=== PATIENT | male | born 1960 | race Caucasian/White ===

== ENCOUNTER 2017-10-08 10:09 | Inpatient (IN) | payer MEDICAID, OTHER ==
[~2017-10-08] VITALS: Ht 185.4 cm; Wt 62.8 kg
[~2017-10-08 10:09] MED LIST: OXYC-307 PO; SULF1TAB24 PO
[2017-10-08] MEDS ORDERED: SODIUM CHLORIDE FLUSH 10ML SYR IVF ONE (11:30)
[2017-10-08 11:59] LABS: MD YES; MEAN CORPUSCULAR HEMOGLOBIN 32.4 pg (27.5-34.5); MEAN CORPUSCULAR HGB CONC 34.6 g/dL (33.2-36.2); MEAN CORPUSCULAR VOLUME 93.7 fL (81-97); MEAN PLATELET VOLUME 9.8 fL (7.4-10.4); PLATELET COUNT 360 x10^3/uL (130-400); RED BLOOD COUNT 4.32 x10^6/uL (4.38-5.82); RED CELL DISTRIBUTION WIDTH 16.6 % (9.4-14.8)
[2017-10-08 12:03] LABS: ALANINE AMINOTRANSFERASE 104 U/L (12-78); ALBUMIN 2.3 g/dL (3.4-5.0); ANION GAP 10 mmol/L (5-15); CALCIUM 8.3 mg/dL (8.5-10.1); CHLORIDE 105 mmol/L (98-107)
[2017-10-08 12:08] LABS: ALKALINE PHOSPHATASE 498 U/L (45-117); BILIRUBIN,INDIRECT 3.1 mg/dL (0.0-2.0); TOTAL PROTEIN 5.9 g/dL (6.4-8.2)
[2017-10-08 12:10] LABS: ACETAMINOPHEN < 2 mcg/mL (10-30); BILIRUBIN, DIRECT 15.1 mg/dL (0.1-0.2); SALICYLATE LEVEL < 1.7 mg/dL (2.8-20.0)
[2017-10-08 12:18] LABS: BILIRUBIN,TOTAL 18.2 mg/dL (0.2-1.0)
[2017-10-08] MEDS ORDERED: PANTOPRAZOLE 40 MG IV IVPush ONE (12:30)
[2017-10-08 12:36] LABS: LYMPH#(MANUAL) 1.38 x10^3/uL (1-3.4); LYMPHS% (MANUAL) 10 % (22-44); SEG#(MANUAL) 12.42 x10^3/uL (1.8-6.8); SEGS% (MANUAL) 90 % (42-75)
[2017-10-08 12:37] LABS: ANISOCYTOSIS 1+; HYPOCHROMIA 1+; TARGET CELLS 2+
[2017-10-08 12:38] LABS: <PLATELET ESTIMATE> ADEQUATE; LARGE PLATELETS 1+
[2017-10-08] MEDS ORDERED: PANTOPRAZOLE 40 MG IV ONE (12:47)
[2017-10-08 12:58] LABS: MICROSCOPIC INDICATED
[2017-10-08 13:02] LABS: INTERNATIONAL NORMALIZED RATIO 1.17 (0.93-1.1); PROTHROMBIN TIME 12.1 Seconds (9.6-11.5)
[2017-10-08 13:07] LABS: CULTURE INDICATED? YES
[2017-10-08] MEDS ORDERED: OMNIPAQUE 350 MG/ML, 100ML BOTTLE ONE (13:49)
[2017-10-08] MEDS ORDERED: SODIUM CHLORIDE FLUSH 10ML SYR IVF PRN (14:30)
[2017-10-08] MEDS ORDERED: ENALAPRILAT 1.25 MG/ML, 2ML IV PRN (15:30)
[2017-10-08] MEDS ORDERED: DOCUSATE 100 MG CAPSULE PO PRN (15:30)
[2017-10-08] MEDS ORDERED: MORPHINE SULFATE 4 MG/ML, 1ML IVPush PRN (15:30)
[2017-10-08] MEDS ORDERED: ONDANSETRON ODT 4 MG PO PRN (15:30)
[2017-10-08] MEDS ORDERED: ONDANSETRON 2MG/ML, 2ML IVPush PRN (15:30)
[2017-10-08] MEDS ORDERED: LIDOCAINE-MPF 2% ,5ML ONE (15:41)
[2017-10-08] MEDS ORDERED: FENTANYL PF 100 MCG/2ML ONE (15:42)
[2017-10-08] MEDS ORDERED: MIDAZOLAM 1 MG/ML, 5ML ONE (15:43)
[2017-10-08] MEDS ORDERED: SODIUM CHLORIDE 0.9% 1,000 ML IV SCH (16:00)
[2017-10-08 16:50] VITALS: BP 116/65
[2017-10-08] MEDS ORDERED: POTASSIUM CHLORIDE 20 MEQ TAB.ER.PRT PO ONE (17:00)
[2017-10-08] MEDS: OXYcodone IR 5MG TABLET PO PRN ×2 (19:37→21:04)
[2017-10-08] MEDS: CEFTRIAXONE PMX 1GM/50ML 50 ML IV SCH (19:38)
[2017-10-08] MEDS: NS + 20MEQ KCL 1,000 ML IV SCH (19:38)
[2017-10-08 19:47] VITALS: BP 122/80
[2017-10-09 00:41] VITALS: BP 130/74
[2017-10-09] MEDS: OXYcodone IR 5MG TABLET PO PRN ×5 (00:46→20:28)
[2017-10-09] MEDS: NS + 20MEQ KCL 1,000 ML IV SCH ×3 (03:36→21:48)
[2017-10-09 04:36] LABS: MEAN CORPUSCULAR VOLUME 94.2 fL (81-97); MEAN PLATELET VOLUME 9.6 fL (7.4-10.4); PLATELET COUNT 312 x10^3/uL (130-400); RED BLOOD COUNT 4.22 x10^6/uL (4.38-5.82); RED CELL DISTRIBUTION WIDTH 16.7 % (9.4-14.8)
[2017-10-09 04:44] LABS: ALBUMIN 1.9 g/dL (3.4-5.0); ANION GAP 8 mmol/L (5-15); CHLORIDE 106 mmol/L (98-107)
[2017-10-09 04:48] LABS: ALANINE AMINOTRANSFERASE 91 U/L (12-78); ALKALINE PHOSPHATASE 441 U/L (45-117); CREATININE 0.93 mg/dL (0.7-1.3); TOTAL PROTEIN 5.1 g/dL (6.4-8.2)
[2017-10-09 04:55] LABS: BILIRUBIN,TOTAL 16.8 mg/dL (0.2-1.0)
[2017-10-09 05:47] LABS: MD YES
[2017-10-09 05:49] LABS: ANISOCYTOSIS 1+; BAND#(MANUAL) 0.14 x10^3/uL; BANDS%(MANUAL) 1 % (0-7); LYMPH#(MANUAL) 1.37 x10^3/uL (1-3.4); LYMPHS% (MANUAL) 10 % (22-44); MONOS#(MANUAL) 0.82 x10^3/uL (0.3-2.7); MONOS% (MANUAL) 6 % (2-9); SEG#(MANUAL) 11.37 x10^3/uL (1.8-6.8); SEGS% (MANUAL) 83 % (42-75)
[2017-10-09 05:50] LABS: <PLATELET ESTIMATE> ADEQUATE; <PLT MORPHOLOGY> NORMAL PLT MORPH; TARGET CELLS 1+
[2017-10-09 06:11] VITALS: BP 128/88
[2017-10-09 07:05] VITALS: BP 110/71
[2017-10-09] MEDS ORDERED: PANTOPRAZOLE 40 MG IV IVPush SCH (07:30)
[2017-10-09 13:19] VITALS: BP 116/73
[2017-10-09] MEDS: METRONIDAZOLE PMX 500MG/100ML 100 ML IV SCH ×2 (16:28→21:48)
[2017-10-09] MEDS: HEPARIN 5,000 UNITS/ML, 1ML SQ SCH (18:51)
[2017-10-09] MEDS: CEFTRIAXONE PMX 1GM/50ML 50 ML IV SCH (20:28)
[2017-10-09 20:33] VITALS: BP 126/76
[2017-10-09] MEDS ORDERED: BENA40TA2 PO (21:47)
[2017-10-09] MEDS ORDERED: AMLO5TAB2 PO (21:47)
[2017-10-10] MEDS: OXYcodone IR 5MG TABLET PO PRN ×4 (00:06→21:05)
[2017-10-10] MEDS: HEPARIN 5,000 UNITS/ML, 1ML SQ SCH ×3 (02:47→18:45)
[2017-10-10 02:48] VITALS: BP 127/77
[2017-10-10] MEDS: METRONIDAZOLE PMX 500MG/100ML 100 ML IV SCH ×4 (04:08→22:15)
[2017-10-10 04:40] LABS: MEAN CORPUSCULAR VOLUME 94.1 fL (81-97); PLATELET COUNT 299 x10^3/uL (130-400); RED BLOOD COUNT 4.16 x10^6/uL (4.38-5.82); RED CELL DISTRIBUTION WIDTH 16.7 % (9.4-14.8)
[2017-10-10 04:43] LABS: ALBUMIN 1.9 g/dL (3.4-5.0); ANION GAP 7 mmol/L (5-15); CALCIUM 7.6 mg/dL (8.5-10.1); CHLORIDE 108 mmol/L (98-107)
[2017-10-10 04:48] LABS: ALANINE AMINOTRANSFERASE 87 U/L (12-78); ALKALINE PHOSPHATASE 455 U/L (45-117); CREATININE 0.72 mg/dL (0.7-1.3); TOTAL PROTEIN 5.1 g/dL (6.4-8.2)
[2017-10-10 04:50] LABS: BILIRUBIN,TOTAL 17.3 mg/dL (0.2-1.0)
[2017-10-10 05:44] LABS: MD YES
[2017-10-10 05:46] LABS: BASOS#(MANUAL) 0.14 x10^3/uL (0-0.1); BASOS% (MANUAL) 1 % (0-1); EOS#(MANUAL) 0.42 x10^3/uL (0.0-0.4); EOS% (MANUAL) 3 % (1-7); LYMPH#(MANUAL) 1.69 x10^3/uL (1-3.4); LYMPHS% (MANUAL) 12 % (22-44); MONOS#(MANUAL) 0.99 x10^3/uL (0.3-2.7); MONOS% (MANUAL) 7 % (2-9); SEG#(MANUAL) 10.86 x10^3/uL (1.8-6.8); SEGS% (MANUAL) 77 % (42-75)
[2017-10-10 05:47] LABS: <PLATELET ESTIMATE> ADEQUATE; <PLT MORPHOLOGY> NORMAL PLT MORPH; ANISOCYTOSIS 1+
[2017-10-10 07:35] VITALS: BP 124/77
[2017-10-10 14:05] VITALS: BP 118/75
[2017-10-10] MEDS ORDERED: NS + 20MEQ KCL 1,000 ML IV SCH (17:00)
[2017-10-10] MEDS: NS + 20MEQ KCL 1,000 ML IV SCH (17:49)
[2017-10-10 19:14] VITALS: BP 118/71
[2017-10-10] MEDS: CEFTRIAXONE PMX 1GM/50ML 50 ML IV SCH (20:56)
[2017-10-11 01:19] VITALS: BP 124/76
[2017-10-11] MEDS: HEPARIN 5,000 UNITS/ML, 1ML SQ SCH ×3 (03:07→18:51)
[2017-10-11] MEDS: OXYcodone IR 5MG TABLET PO PRN ×3 (03:07→18:50)
[2017-10-11] MEDS: METRONIDAZOLE PMX 500MG/100ML 100 ML IV SCH ×4 (03:07→22:20)
[2017-10-11 04:56] LABS: ALBUMIN 1.8 g/dL (3.4-5.0); ANION GAP 8 mmol/L (5-15); CALCIUM 7.8 mg/dL (8.5-10.1); CHLORIDE 106 mmol/L (98-107)
[2017-10-11 05:01] LABS: ALANINE AMINOTRANSFERASE 83 U/L (12-78); ALKALINE PHOSPHATASE 468 U/L (45-117); CREATININE 0.75 mg/dL (0.7-1.3); TOTAL PROTEIN 4.9 g/dL (6.4-8.2)
[2017-10-11 05:02] LABS: BILIRUBIN,TOTAL 19.1 mg/dL (0.2-1.0)
[2017-10-11 05:11] LABS: MEAN CORPUSCULAR HEMOGLOBIN 32.7 pg (27.5-34.5); MEAN CORPUSCULAR VOLUME 93.4 fL (81-97); PLATELET COUNT 304 x10^3/uL (130-400); RED BLOOD COUNT 3.95 x10^6/uL (4.38-5.82); RED CELL DISTRIBUTION WIDTH 16.9 % (9.4-14.8)
[2017-10-11 05:44] LABS: MD YES
[2017-10-11 05:47] LABS: BAND#(MANUAL) 0.14 x10^3/uL; BANDS%(MANUAL) 1 % (0-7); BASOS#(MANUAL) 0.14 x10^3/uL (0-0.1); BASOS% (MANUAL) 1 % (0-1); EOS#(MANUAL) 0.14 x10^3/uL (0.0-0.4); EOS% (MANUAL) 1 % (1-7); LYMPH#(MANUAL) 1.15 x10^3/uL (1-3.4); LYMPHS% (MANUAL) 8 % (22-44); METAMYELOCYTES# (MANUAL) 0.14 x10^3/uL (0-0); METAMYELOCYTES% (MANUAL) 1 % (0-1); MONOS#(MANUAL) 1.44 x10^3/uL (0.3-2.7); MONOS% (MANUAL) 10 % (2-9); SEG#(MANUAL) 11.23 x10^3/uL (1.8-6.8); SEGS% (MANUAL) 78 % (42-75)
[2017-10-11 05:48] LABS: <PLATELET ESTIMATE> ADEQUATE; ANISOCYTOSIS 1+; LARGE PLATELETS 1+
[2017-10-11 07:24] VITALS: BP 127/78
[2017-10-11] MEDS: MAGNESIUM HYDROXIDE 8%, 30ML UDC PO SCH (10:39)
[2017-10-11 16:17] VITALS: BP 106/72
[2017-10-11] MEDS: NS + 20MEQ KCL 1,000 ML IV SCH (18:41)
[2017-10-11 19:10] VITALS: BP 119/76
[2017-10-11] MEDS: CEFTRIAXONE PMX 1GM/50ML 50 ML IV SCH (20:50)
[2017-10-11] MEDS: DOCUSATE 100 MG CAPSULE PO SCH (21:00)
[2017-10-12 01:26] VITALS: BP 124/82
[2017-10-12] MEDS: HEPARIN 5,000 UNITS/ML, 1ML SQ SCH ×2 (03:00→10:28)
[2017-10-12] MEDS: METRONIDAZOLE PMX 500MG/100ML 100 ML IV SCH ×2 (04:01→10:04)
[2017-10-12 05:33] LABS: ALBUMIN 1.9 g/dL (3.4-5.0); ANION GAP 9 mmol/L (5-15); CHLORIDE 106 mmol/L (98-107)
[2017-10-12 05:37] LABS: ALANINE AMINOTRANSFERASE 77 U/L (12-78); ALKALINE PHOSPHATASE 468 U/L (45-117)
[2017-10-12 05:41] LABS: CREATININE 0.88 mg/dL (0.7-1.3)
[2017-10-12 05:42] LABS: BILIRUBIN,TOTAL 20.1 mg/dL (0.2-1.0)
[2017-10-12 06:13] LABS: MEAN CORPUSCULAR HEMOGLOBIN 31.8 pg (27.5-34.5); MEAN CORPUSCULAR HGB CONC 33.9 g/dL (33.2-36.2); MEAN CORPUSCULAR VOLUME 93.8 fL (81-97); MEAN PLATELET VOLUME 10.4 fL (7.4-10.4); PLATELET COUNT 327 x10^3/uL (130-400); RED BLOOD COUNT 4.17 x10^6/uL (4.38-5.82); RED CELL DISTRIBUTION WIDTH 16.8 % (9.4-14.8)
[2017-10-12 06:42] LABS: MD YES
[2017-10-12 07:11] LABS: BASOS#(MANUAL) 0.16 x10^3/uL (0-0.1); BASOS% (MANUAL) 1 % (0-1); LYMPH#(MANUAL) 1.13 x10^3/uL (1-3.4); LYMPHS% (MANUAL) 7 % (22-44); METAMYELOCYTES# (MANUAL) 0.16 x10^3/uL (0-0); METAMYELOCYTES% (MANUAL) 1 % (0-1); MONOS#(MANUAL) 1.46 x10^3/uL (0.3-2.7); MONOS% (MANUAL) 9 % (2-9); SEG#(MANUAL) 13.28 x10^3/uL (1.8-6.8); SEGS% (MANUAL) 82 % (42-75)
[2017-10-12 07:20] LABS: <PLATELET ESTIMATE> ADEQUATE; ANISOCYTOSIS 1+; LARGE PLATELETS 1+; TARGET CELLS 1+
[2017-10-12] MEDS ORDERED: NALOXONE 1 MG/ML, 2ML ONE (07:29)
[2017-10-12] MEDS ORDERED: FENTANYL PF 100 MCG/2ML ONE (07:29)
[2017-10-12] MEDS ORDERED: MIDAZOLAM 1 MG/ML, 5ML ONE (07:29)
[2017-10-12] MEDS ORDERED: FLUMAZENIL 0.1 MG/1 ML, 5ML ONE (07:29)
[2017-10-12 08:45] VITALS: BP 113/75
[2017-10-12] MEDS: MESALAMINE ENEMA 4 GM/60 ML ENEMA PR SCH (10:00)
[2017-10-12] MEDS: MAGNESIUM HYDROXIDE 8%, 30ML UDC PO SCH (10:02)
[2017-10-12] MEDS: DOCUSATE 100 MG CAPSULE PO SCH (10:03)
[2017-10-12] MEDS ORDERED: BISACODYL 10 MG SUPP ONE (10:25)
[2017-10-12] MEDS: OXYcodone IR 5MG TABLET PO PRN ×2 (10:28→18:08)
[2017-10-12] MEDS ORDERED: BISACODYL 10 MG SUPP PR PRN (10:30)
[2017-10-12] MEDS ORDERED: ENOXAPARIN 40 MG/0.4 ML SQ SCH (14:00)
[2017-10-12] MEDS: AMOXICILLIN/CLAV 875-125MG TABLET PO SCH (20:31)
[2017-10-12 20:33] VITALS: BP 116/75
[2017-10-13 02:30] VITALS: BP 123/68
[2017-10-13] MEDS: OXYcodone IR 5MG TABLET PO PRN ×2 (05:18→09:11)
[2017-10-13 05:35] LABS: MEAN CORPUSCULAR HEMOGLOBIN 32.9 pg (27.5-34.5); MEAN CORPUSCULAR HGB CONC 35.1 g/dL (33.2-36.2); MEAN CORPUSCULAR VOLUME 93.8 fL (81-97); MEAN PLATELET VOLUME 9.5 fL (7.4-10.4); PLATELET COUNT 333 x10^3/uL (130-400); RED BLOOD COUNT 4.06 x10^6/uL (4.38-5.82); RED CELL DISTRIBUTION WIDTH 16.6 % (9.4-14.8)
[2017-10-13 05:41] LABS: ALBUMIN 1.8 g/dL (3.4-5.0); ANION GAP 7 mmol/L (5-15); CALCIUM 8.3 mg/dL (8.5-10.1); CHLORIDE 105 mmol/L (98-107)
[2017-10-13 05:47] LABS: ALANINE AMINOTRANSFERASE 75 U/L (12-78); ALKALINE PHOSPHATASE 449 U/L (45-117)
[2017-10-13 05:48] LABS: CREATININE 0.83 mg/dL (0.7-1.3); TOTAL PROTEIN 4.9 g/dL (6.4-8.2)
[2017-10-13 05:49] LABS: BILIRUBIN,TOTAL 20.4 mg/dL (0.2-1.0)
[2017-10-13 06:06] LABS: MD YES
[2017-10-13 06:08] LABS: <PLATELET ESTIMATE> ADEQUATE; ANISOCYTOSIS 1+; LYMPH#(MANUAL) 1.02 x10^3/uL (1-3.4); LYMPHS% (MANUAL) 6 % (22-44); MONOS#(MANUAL) 1.19 x10^3/uL (0.3-2.7); MONOS% (MANUAL) 7 % (2-9); SEG#(MANUAL) 14.79 x10^3/uL (1.8-6.8); SEGS% (MANUAL) 87 % (42-75)
[2017-10-13 06:11] LABS: LARGE PLATELETS 1+
[2017-10-13 08:28] VITALS: BP 139/84
[2017-10-13] MEDS: MESALAMINE ENEMA 4 GM/60 ML ENEMA PR SCH (09:00)
[2017-10-13] MEDS: AMOXICILLIN/CLAV 875-125MG TABLET PO SCH (09:09)
[2017-10-13] MEDS: MAGNESIUM HYDROXIDE 8%, 30ML UDC PO SCH (09:09)
[2017-10-13] MEDS ORDERED: ONDA4TAB13 PO (11:05)
[2017-10-13] MEDS ORDERED: AMOX1TAB12 PO (11:05)
== END 2017-10-13 14:47 | disposition hospice, home (50) | DRG 435 ==
LOC: ED 13:18 → EDIP 14:28 → 3NW 15:20
PROVIDERS: ADMIT Internal Medicine; ATTEND Internal Medicine
PROC: 0FB03ZX Excision of Liver, Percutaneous Approach, Diagnostic (ICD-10-PCS; principal; 2017-10-08)
DX: C25.9 Malignant neoplasm of pancreas, unspecified (principal); E43 Unspecified severe protein-calorie malnutrition; C78.7 Secondary malignant neoplasm of liver and intrahepatic bile duct; K76.6 Portal hypertension; R18.8 Other ascites; K81.1 Chronic cholecystitis; N39.0 Urinary tract infection, site not specified; Z68.1 Body mass index [BMI] 19.9 or less, adult; K74.60 Unspecified cirrhosis of liver; B19.20 Unspecified viral hepatitis C without hepatic coma; E73.9 Lactose intolerance, unspecified; E87.6 Hypokalemia; I10 Essential (primary) hypertension; K59.00 Constipation, unspecified; Z51.5 Encounter for palliative care; Z66 Do not resuscitate; Z82.49 Family history of ischemic heart disease and other diseases of the circulatory system; Z83.3 Family history of diabetes mellitus
CPT/HCPCS: 36415; 47000; 74177; 74181; 76700; 76942; 78226; 80053; 80307; 80329; 81001; 82247; 82248; 82378; 83690; 83735; 84100; 85025; 85610; 85730; 86301; 86704; 86706; 86708; 86803; 87040; 87086; 87340; 88307; 88341; 88342; 96374; 99156; J0696; J1644; J2250; J3010; J3480; J3490; Q0162; Q9967; A9537; C9113; C9898; G0461; G0480; J2310